=== PATIENT | female | born 1980 | race Caucasian/White ===

== ENCOUNTER 2016-11-27 15:57 | Emergency (ER) | payer BC ==
[~2016-11-27] VITALS: Ht 157.5 cm; Wt 59.5 kg
[2016-11-27 16:02] VITALS: Ht 157.5 cm; Wt 59.5 kg
--- NOTE | 2016-11-27 17:00 | ERD ---
ER Documentation Chief Complaint Date/Time DATE: 11/27/16 TIME: 16:58 Chief Complaint RIGHT FOOT PAIN X1DAY S/P STEPPING ON ROCK ROLLLING ANKLE HPI This is a 36-year-old female presents to the ER with right foot pain that started yesterday after she stepped on a rock and rolled her right foot. Patient states that now she has severe pain whenever she moves her foot up and down. She also admits to some numbness and tingling of her toes. Since states that pain radiated up to her ankle. Pain is throbbing in quality. Patient tried taking ibuprofen, icing her foot and elevating her foot which made it feel better. Patient denies any fevers or chills. ROS 12 point review of systems was done, all negative except per HPI. Medications Home Meds Active Scripts Ibuprofen* (Motrin*) 600 Mg Tab, 600 MG PO Q6, #30 TAB Prov:SJ DYE 11/27/16 Allergies Allergies: Coded Allergies: Penicillins (Verified Allergy, Unknown, 11/25/15) PMhx/Soc History of Surgery: Yes (rhinoplasty ) Anesthesia Reaction: No Hx Neurological Disorder: No Hx Respiratory Disorders: No Hx Cardiac Disorders: No Hx Psychiatric Problems: No Hx Miscellaneous Medical Probl: Yes (hyperlipidemia ) Hx Alcohol Use: Yes (occasional) Hx Substance Use: No Hx Tobacco Use: No Smoking Status: Never smoker Physical Exam Vitals Vital Signs Date Time Temp Pulse Resp B/P Pulse Ox O2 Delivery O2 Flow Rate FiO2 11/27/16 16:02 98.2 72 20 122/60 97 Physical Exam GENERAL: The patient is well developed and appropriate for usual state of health , in no apparent distress. HEENT: Atraumatic CHEST: Clear to auscultation bilaterally. There are no rales, wheezes or rhonchi. HEART: Regular rate and rhythm. No murmurs, clicks, rubs or gallops. EXTREMITIES: Ankle-patient is able to bear weight and ambulate without any pain. Right ankle is without obvious asymmetry or deformity when compared to the right ankle. Patient can flex/ext, invert/sven ankle. No obvious surface trauma, ecchymosis. No bony tenderness to palpation over the medial or lateral malleolus. Anterior talofibular ligament, posterior talofibular ligament, calcaneofibular ligament NT and without swelling. Tender to palpation over the dorsal midfoot or over the proximal fifth metatarsal, good dorsalis pedis and posterior tibial pulses and sensation to light touch is normal. Talar tilt test is negative for ligament laxity to valgus or varus stress. Negative anterior drawer.. Peroneal nerve is intact with strong eversion and plantarflexion. Negative squeeze test. Knee: Full and non painful ROM, not TTP. NEURO: Alert and oriented SKIN: There is no apparent rash or petechia. The skin is warm and dry. Procedures/MDM Differential diagnosis includes but is not limited to ankle sprain, ankle fracture, Achilles tendon rupture, proximal fibula fracture, distal fibula avulsion fracture, bimalleolar or trimalleolar fracture, peroneal nerve injury, acute compartment syndrome. At this time patient likely has a foot sprain. There is no evidence of fracture dislocation. Patient had normal range of motion of her ankle and foot and she is neurovascularly intact. She is afebrile and well-appearing. Patient will be sent home with ibuprofen. patient was given crutches. Patient is to follow-up with her primary care doctor within 1-2 days return to ER sooner if symptoms worsen. My medical decision making shared with the patient she understands and agrees with plan Departure Diagnosis: Primary Impression: Foot pain Condition: Stable SJ DYE Nov 27, 2016 17:00 SJ DYE Nov 27, 2016 17:00
--- NOTE | 2016-11-27 18:15 | RADRPT ---
PROCEDURE: XR Foot. CLINICAL INDICATION: Right foot pain TECHNIQUE: Three views of the right foot are available for review. COMPARISON: None available FINDINGS: No acute fracture or dislocation is seen. No radiopaque foreign body is identified. 7 mm plantar ca lcaneal spur is noted. No significant soft tissue swelling is noted. IMPRESSION: 1. No acute fracture or dislocation. 2. 7 mm plantar calcaneal spur. RPTAT: HFN .Rand Arguelles MD, Date Time Electronically viewed and signed by .Rand Arguelles MD, on 11/27/2016 18:15 .N/
--- NOTE | 2016-11-27 18:16 | RADRPT ---
PROCEDURE: XR Ankle. CLINICAL INDICATION: Right ankle pain. TECHNIQUE: Three views of the right ankle were performed. COMPARISON: None. FINDINGS: No acute fracture or dislocation is seen. The ankle mortise is symmetric. 7 mm plantar calcaneal spu r is noted. No radiopaque foreign body is identified. No significant soft tissue swelling is noted. IMPRESSION: 1. No acute fracture or dislocation. 2. 7 mm plantar calcaneal spur. RPTAT: HFN .Rand Arguelles MD, Date Time Electronically viewed and signed by .Rand Arguelles MD, on 11/27/2016 18:16 .N/
[2016-11-27] MEDS ORDERED: IBUP-1542 PO (18:21)
== END 2016-11-27 19:07 | disposition home or self-care (01) ==
LOC: FTE 15:57
DX: M79.671 Pain in right foot (principal)
CPT/HCPCS: 73630